=== PATIENT | female | born 1990 | race Caucasian/White ===

== ENCOUNTER → 2018-08-20 | Outpatient (REF) | payer BC ==
[2018-08-20 14:59] LABS: CHLAMYDIA DNA AMPLIFICATION NEGATIVE (NEGATIVE); GC DNA AMPLIFICATION NEGATIVE (NEGATIVE)
== END ==
LOC: M LAB REF 12:20
PROVIDERS: ATTEND Physician Assistant
DX: Z11.3 Encounter for screening for infections with a predominantly sexual mode of transmission (principal)

== ENCOUNTER 2018-10-29 10:51 | Emergency (ER) | payer SELFPAY ==
[~2018-10-29] VITALS: Ht 157.5 cm; Wt 70.8 kg
[2018-10-29] MEDS ORDERED: KETOROLAC 30 MG/ML VIAL (J1885) IV ONE (11:00)
[2018-10-29] MEDS ORDERED: NS 1,000 ML IV ONE (11:00)
[2018-10-29 11:27] LABS: BACTERIA, URINE AUTO 1+ (NEGATIVE); MUCUS, URINE SMALL (NEGATIVE); RBC, URINE AUTO TNTC /HPF (0-3); SQUAMOUS EPITHELIAL CELL UR AU 15 /HPF (0-6); WBC, URINE AUTO 20 /HPF (0-3)
[2018-10-29 11:30] LABS: BASO % 0.6 % (0.0-1.0); EOS % 0.6 % (0.0-3.0); HEMATOCRIT 43.6 % (36.0-47.0); HEMOGLOBIN 15.1 g/dl (12.0-15.5); LYMPH % 28.1 % (24.0-44.0); MEAN CORPUSCULAR HEMOGLOBIN 32.8 pg (27.0-33.0); MEAN CORPUSCULAR HGB CONC 34.6 g/dl (32.0-36.5); MEAN CORPUSCULAR VOLUME 94.8 fl (80.0-96.0); MONO # 0.8 10^3/uL (0.0-0.8); MONO % 11.2 % (0.0-5.0); NEUTROPHILS # 4.2 10^3/uL (1.8-7.7); NEUTROPHILS % 59.1 % (36.0-66.0); PLATELET COUNT, AUTOMATED 312 10^3/uL (150-450); WHITE BLOOD COUNT 7.1 10^3/uL (4.0-10.0)
[2018-10-29 11:38] LABS: APPEARANCE, URINE CLOUDY (CLEAR); BILIRUBIN, URINE AUTO NEGATIVE (NEGATIVE); BLOOD, URINE BLOOD 3+ (NEGATIVE); COLOR, URINE YELLOW (YELLOW); GLUCOSE, URINE (UA) AUTO NEGATIVE (NEGATIVE); KETONE, URINE AUTO NEGATIVE (NEGATIVE); LEUKOCYTE ESTERASE, URINE AUTO NEGATIVE (NEGATIVE); NITRITE, URINE AUTO NEGATIVE (NEGATIVE); PROTEIN, URINE AUTO 1+ mg/dL (NEGATIVE); SPECIFIC GRAVITY URINE AUTO 1.026 (1.002-1.035); UROBILINOGEN, URINE AUTO 0.2 mg/dL (0.0-2.0)
[2018-10-29 11:53] LABS: BLOOD UREA NITROGEN 17 MG/DL (7-18); CALCIUM LEVEL 8.9 MG/DL (8.5-10.1); CARBON DIOXIDE LEVEL 28 MEQ/L (21-32); CHLORIDE LEVEL 110 MEQ/L (98-107); CREATININE FOR GFR 0.96 MG/DL (0.55-1.30); GLOMERULAR FILTRATION RATE > 60.0 (>60); GLUCOSE, FASTING 129 MG/DL (70-100); POTASSIUM SERUM 3.4 MEQ/L (3.5-5.1); SODIUM LEVEL 141 MEQ/L (136-145)
[2018-10-29 11:58] LABS: ALBUMIN 3.8 GM/DL (3.2-5.2); ALT/SGPT 23 U/L (12-78); AMYLASE 43 U/L (25-115); BILIRUBIN,DIRECT < 0.1 MG/DL (0.0-0.2); BILIRUBIN,TOTAL 0.2 MG/DL (0.2-1.0); LIPASE 119 U/L (73-393); TOTAL PROTEIN 7.1 GM/DL (6.4-8.2)
[2018-10-29] MEDS ORDERED: MORPHINE 2 MG/ML 1ML SYRINGE (J2270) IV ONE (12:15)
--- NOTE | 2018-10-29 13:18 | REP ---
Supine abdomen single AP view: Comparison is the abdomen/pelvis CT dated 02/11/2016. There are calcifications bilaterally in the pelvis inferiorly, phleboliths versus ureteral. Correlate with symptomatology. There are no calcifications projected over the kidneys or ureters otherwise. The bowel gas pattern is normal. Skeletal structures are unremarkable. Impression: Nonspecific pelvic calcifications as described. with symptomatology Electronically Signed by Nagi Alcantar MD 10/29/2018 01:10 P
--- NOTE | 2018-10-29 13:28 | REP ---
RENAL AND BLADDER ULTRASOUND: Real-time sonographic evaluation of the kidneys and bladder performed. Kidneys are normal in sized and echotexture, right kidney measuring 9.5 x 4.3 x 5.1 cm and left kidney 9.8 x 4.4 x 5.7 cm. There is no renal mass or stone identified. There does appear to be mild left hydronephrosis. Urinary bladder is grossly unremarkable with no definite intraluminal calculus. Bilateral ureteral jets are seen in the urinary bladder with Doppler color evaluation. IMPRESSION: Mild left hydronephrosis. No definite stone seen bilaterally. There are bilateral ureteral jets in the urinary bladder with Doppler color evaluation. Electronically Signed by Nagi Hernandez MD 10/31/2018 10:51 P
[2018-10-29 13:48] VITALS: BP 135/92
[2018-10-29] MEDS ORDERED: MACR100C43 PO (13:53)
[2018-10-29] MEDS ORDERED: KETO10TAB PO (13:53)
== END 2018-10-29 14:17 | disposition home or self-care (01) ==
LOC: M ED 10:51
DX: N39.0 Urinary tract infection, site not specified (principal); N31.9 Neuromuscular dysfunction of bladder, unspecified; N13.30 Unspecified hydronephrosis; Z87.442 Personal history of urinary calculi; Z87.891 Personal history of nicotine dependence
CPT/HCPCS: 36415; 74018; 76775; 80048; 80076; 81001; 82150; 83690; 85025; 99284; J1885; J2270

== ENCOUNTER → 2021-03-12 | Outpatient (REF) | payer OTHER ==
[~2021-03-12] MED LIST: KETO10TAB PO; MACR100C43 PO
== END ==
LOC: M LAB REF 16:25
PROVIDERS: ATTEND Registered Nurse
DX: R21 Rash and other nonspecific skin eruption (principal)